=== PATIENT | female | born 1950 | race Caucasian/White ===

== ENCOUNTER 2018-05-10 13:08 | Outpatient (CLI) | payer MEDICARE, MEDICAID ==
--- NOTE | 2018-05-10 15:59 | RAD ---
RADIOGRAPH CHEST 2 VIEWS: Date: 05-10-18 Time: 1:22 P.M. HISTORY: 67-year-old female with dyspnea. COMPARISON: None available. 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 Multiple old right rib fracture deformities. Di ffuse osteopenia. No pleural effusion or consolidation. Prominent interstitial markings diffusely. Ca rdiomegaly. Atherosclerotic calcifications, tortuosity, and ectasia and of the thoracic aorta. No pne umothorax identified. No moderate sized or large pneumothorax identified, although the sensitivity is decreased because of the severe kyphosis. IMPRESSION: 1. 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 2. Multiple old right rib fracture deformities. 3. Prominent interstitial markings. 4. No pulmonary edema or consolidation. ALFREDO POS: JUAN
== END 2018-05-10 13:09 | disposition home or self-care (01) ==
LOC: RAD 13:08
PROVIDERS: ATTEND Internal Medicine Critical Care Medicine
DX: R06.00 Dyspnea, unspecified (principal); M40.204 Unspecified kyphosis, thoracic region; R91.8 Other nonspecific abnormal finding of lung field; M95.4 Acquired deformity of chest and rib
CPT/HCPCS: 71046

== ENCOUNTER 2019-11-21 19:54 | Inpatient (IN) | payer MEDICARE, OTHER ==
[~2019-11-21 19:54] MED LIST: Iopamidol-370 76% 500 ML 1 ML ONE
[2019-11-21 20:39] LABS: Hemoglobin 13.2 g/dL (12.0-16.0); Mean Corpuscular HGB CONC 31.7 g/dL (32.0-36.0); Mean Corpuscular Hemoglobin 33.4 pg (27.0-31.0); Mean Platelet Volume 8.7 fL (7.4-10.4); Platelet Count 249 thou/uL (130-400); RBC Distribution Width 10.8 % (11.5-14.5); Red Blood Cell (RBC) Count 3.95 mill/uL (4.20-5.40); White Blood Cell (WBC) Count 14.3 thou/uL (4.8-10.8)
[2019-11-21 20:40] LABS: #Basophils 0.1 thou/uL (0.0-0.2); #Eosinphils 0.4 thou/uL (0.0-0.7); #Lymphocytes 3.1 thou/uL (1.20-3.40); #Monocytes 1.3 thou/uL (0.11-0.59); #Neutrophils 9.4 thou/uL (1.40-6.50); %Basophils 0.8 % (0.0-1.0); %Lymphocytes 21.4 % (21.0-51.0); %Monocytes 9.3 % (0.0-10.0); %Neutrophils 65.5 % (42.0-75.0)
[2019-11-21 20:54] LABS: ALT (SGPT) 15 U/L (8-55); AST (SGOT) 21 U/L (5-34); Albumin 4.2 g/dL (3.4-4.8); Alkaline Phosphatase 92 U/L (40-110); Anion Gap 17 mmol/L (10-20); BUN (Urea Nitrogen) 26 mg/dL (9.8-20.1); Bilirubin, Total 0.2 mg/dL (0.2-1.2); CK (CPK) 122 U/L (29-168); Calc. Creatinine Clearance 0 mL/min (70-130); Calcium 9.4 mg/dL (7.8-10.44); Carbon Dioxide 32 mmol/L (23-31); Chloride 94 mmol/L (98-107); Estimated GFR-MDRD 74; Globulin 2.7 g/dL (2.4-3.5); Glucose 105 mg/dL (80-115); Potassium 3.9 mmol/L (3.5-5.1); Protein, Total 6.9 g/dL (6.0-8.3); Sodium 139 mmol/L (136-145)
[2019-11-21] MEDS ORDERED: Clindamycin/D5W 900 mg/50 ml Premix Bag ONE (21:08)
[2019-11-21] MEDS ORDERED: Fentanyl 100 MCG/2 ML VIAL ONE (21:08)
[2019-11-21] MEDS ORDERED: Vancomycin 1 GM/200 ML BAG ONE (21:08)
--- NOTE | 2019-11-21 21:17 | RAD ---
RIGHT ANKLE 3 VIEWS: HISTORY: Injury, right ankle pain FINDINGS: Soft tissue swelling is present. The ankle mortise is maintained. No acute fracture or dislocation is identified. A tiny plantar calcaneal spur is present
--- NOTE | 2019-11-21 22:03 | RAD ---
PORTABLE CHEST ONE VIEW: 11/21/19 at 8:11 p.m. HISTORY: Chest pain. COMPARISON: 05/10/18. The heart is enlarged. The aorta is tortuous. Chronic changes are again seen in the lung etienne bilat erally. No lobar consolidation, pneumothoraces, yasmine pulmonary edema or pleural effusions are identi fied. Bilateral rib deformities are redemonstrated. IMPRESSION: No acute process. POS: RIDGE
[2019-11-21] MEDS ORDERED: methylPREDNISolone Sod Succ/PF 125 MG/2 ML VIAL ONE (22:33)
[2019-11-21] MEDS ORDERED: diphenhydrAMINE 50 MG/ML VIAL ONE (22:33)
[2019-11-21] MEDS ORDERED: Famotidine/PF 20 mg/2ml Vial ONE (22:33)
--- NOTE | 2019-11-21 23:32 | CT ---
CT PULMONARY ANGIOGRAM WITH IV CONTRAST AND 3-D POSTPROCESSING: HISTORY:Chest pain and shortness of breath FINDINGS: There is good contrast opacification of the pulmonary arterial vasculature without filling defects to suggest pulmonary embolism. There are vascular calcifications without evidence of aneurysmal dilatation of the thoracic aorta. No pleural or pericardial effusions are seen. No pneumothoraces, focal areas of consolidation or lung nodules are noted. There is subsegmental atel ectatic change at the lung bases There are degenerative changes in the spine. IMPRESSION: No CT evidence of pulmonary embolism.
--- NOTE | 2019-11-22 | ULT ---
EXAM: Right lower extremity venous Doppler US HISTORY: Right lower extremity edema, redness and pain FINDINGS: Grayscale, color-flow, Doppler evaluation, spectral analysis of the right lower extremity venous stru ctures is performed with 2-D imaging. The right common femoral, superficial femoral, popliteal, posterior tibial, proximal greater saphenous and profunda femoral veins are imaged. There is normal luminal compressibility, flow, and augmentation the visualized deep venous structures of the right lower extremity. IMPRESSION: No evidence of a deep vein thrombosis in the right lower extremity.
[2019-11-22 01:13] LABS: Troponin I Less than 0.010 ng/mL (< 0.028)
[2019-11-22 01:56] VITALS: BMI 39.9
[2019-11-22] MEDS ORDERED: Acetaminophen 650 MG Suppository PR PRN (03:09)
[2019-11-22] MEDS ORDERED: Lorazepam 0.5 MG TAB PO PRN (03:12)
[2019-11-22] MEDS ORDERED: Alendronate Sodium 70 mg Tablet PO SCH (03:15)
[2019-11-22] MEDS: Nitroglycerin 0.4 MG TAB (25 Tab Bottle) PO PRN ×3 (03:38→23:03)
[2019-11-22] MEDS ORDERED: Morphine 2 MG/ML SYRINGE SLOW IVP SCH (03:45)
[2019-11-22] MEDS: Baclofen 10 MG TAB PO PRN ×2 (04:01→08:53)
[2019-11-22] MEDS: Acetaminophen 325 MG TAB PO PRN ×2 (04:02→08:38)
[2019-11-22 04:24] LABS: Bacteria/HPF None Seen HPF (None Seen); Bilirubin Negative (Negative); Blood, Urine Negative (Negative); Clarity Clear (Clear); Glucose, Urine (Dipstick) Normal (Negative); Leukocyte 250 Leu/uL (Negative); Nitrite Negative (Negative); Protein, Urine (Dipstick) Negative (Neg-Trace); RBC/HPF 0-3 HPF (0-3); Squamous Epithelial None Seen HPF (0-3); Urobilinogen Normal mg/dL (Less than 2)
[2019-11-22 04:26] LABS: Urine Culture Reflex Yes Yes
--- NOTE | 2019-11-22 05:07 | HP ---
TIME OF ASSESSMENT: 0200 hours. PRIMARY CARE PHYSICIAN: Dr. Jose Baeza. CHIEF COMPLAINT: Left-sided chest pain. HISTORY OF PRESENT ILLNESS: Ms. Brown is a very pleasant 69-year-old woman, who presents with complaints of left-sided chest pain, which she describes as a heaviness. She states it feels as if a "rock is pushing on my chest." The patient states it is nonradiating and at its worst was 8/10 in severity today. The patient states the pain eased with fentanyl given in the emergency department, she received a dose of 100 mcg. At present, the pain is 6/10 and has been gradually building back up. She reports having an appointment with Dr. Romero on the with plans to undergo a stress test. She has not had an echo or a stress test since 2016 when she was seeing a agricultural science professor in [place]. The patient reports having left-sided upper back pain last week and states that she felt as though she pulled a muscle. She describes a tearing pain. On Wednesday night, she developed pain radiating from the left shoulder blade region wrapping around the left lateral chest wall toward the front of her chest. She states the pain today; however, is different. She continues to have discomfort in the left shoulder blade region, worse with certain movements. Denies any injuries, falls or heavy lifting. The patient reports shortness of breath at baseline and is on oxygen at home. She states she has underlying COPD and CHF and uses 3-4 L by nasal cannula at home, but this has not changed from baseline. Denies having any hemoptysis. She does have a chronic cough. She reports having issues with chronic constipation, but denies any abdominal pain or cramping. No melena or bright red blood per rectum. Denies any urinary symptoms. Has been afebrile. All other review of systems are negative. EMERGENCY DEPARTMENT COURSE: The patient had one spray of nitroglycerin en route to the hospital. She had an EKG done that showed normal sinus rhythm with left atrial enlargement type changes. Heart rate 90. No ST changes or T-wave abnormalities. A chest x-ray was done showing no acute process. LABORATORY STUDIES: Notable for white count of 14.3, hemoglobin 13.2, hematocrit 41.7, platelets 249, neutrophils 65.5%. CK 122, BUN 26, creatinine 0.78, GFR is 74. LFTs unremarkable. BNP 11.3. Lipase normal. Lactic acid 0.6. D-dimer was slightly elevated at 0.48. She apparently had some mild discomfort in the right ankle, therefore underwent an x-ray that showed soft tissue swelling, but no acute fracture. A tiny plantar calcaneal spur present. She had a chest x-ray done, which showed no acute changes. CT angiogram was done due to the elevated D-dimer, which demonstrated no CT evidence of PE. She underwent a venous Doppler of the right lower extremity showing no evidence of DVT. In the ED, she received 1 L of normal saline. She was started on IV antibiotics with vancomycin and clindamycin due to leukocytosis, felt to be associated with possible right lower extremity cellulitis. She was premedicated for the CT angiogram with Solu-Medrol, Benadryl and Pepcid given the history of allergic reaction. The patient is being admitted for ACS rule out and treatment of right lower extremity cellulitis. ALLERGIES: HALDOL, IODINE CONTRAST, PENICILLIN. HOME MEDICATIONS: 1. Aspirin. 2. Hydrocodone. 3. Fosamax. 4. Amlodipine. 5. Abilify. 6. Ascorbic acid. 7. Baclofen. 8. Rocephin. 9. DuoNeb. 10. Trazadone. 11. Lamotrigine. 12. Lisinopril. 13. Pravastatin. 14. Multivitamin. 15. Oxybutynin. PAST MEDICAL HISTORY: 1. COPD. 2. Osteoporosis. 3. Heart failure. 4. Hypertension. 5. Morbid obesity. 6. Anxiety. PAST SURGICAL HISTORY: 1. Hysterectomy. 2. Tonsillectomy. SOCIAL HISTORY: The patient denies any current tobacco use. Denies any alcohol consumption or illicit drug use. PHYSICAL EXAMINATION: GENERAL: The patient appears well developed, morbidly obese, in no acute distress. She is resting comfortably in bed. VITAL SIGNS: Temperature 98.3, pulse 74, respirations 20, O2 saturation 96% on 3 L by nasal cannula, blood pressure 157/72. HEENT: Normocephalic and atraumatic. Pupils are equal, round, reactive to light. Sclerae icterus. Oropharynx is clear. NECK: Supple. LUNGS: Clear to auscultation bilaterally without any wheezes, rales, or rhonchi. CARDIAC: Regular rate and rhythm. Chest wall without any reproducible tenderness on the anterior chest or the lateral chest. ABDOMEN: Obese, soft, nontender, nondistended. Normoactive bowel sounds present. No guarding or rigidity. No renal angle tenderness. EXTREMITIES: No lower extremity edema present. No notable areas of concern for infection on the right lower extremity. She does have a bulging vein of the left ankle. SKIN: Warm and dry. NEUROLOGIC: Alert and oriented x3. No neuro deficits. INVESTIGATIONS: As mentioned above in HPI. IMPRESSION AND PLAN: Ms. Brown is a pleasant 69-year-old woman, who is being admitted for management of the following. 1. Acute coronary syndrome rule out. The patient is requesting to be seen by Dr. Romero and states she was due for a stress test next week on November 29, 2019. She underwent Coronavirus disease testing in the emergency department due to leukocytosis. Therefore, we will hold off on ordering stress test until results are back and we will consult Dr. Romero as requested by the patient. Further recommendations as per Cardiology review. 2. We will continue to trend troponins. We will continue daily aspirin and statin. 3. Leukocytosis. The patient reported to have right lower extremity cellulitis; however, no evidence of that on exam. I have ordered a urinalysis and urine culture. Also, Coronavirus disease testing pending as mentioned above. No obvious signs or symptoms of infection. The patient remains afebrile at present. We will hold off any further antibiotics for the time being. The patient to decide if this should be continued. 4. History of congestive heart failure. The patient on Lasix 80 mg p.o. b.i.d. at home. We will resume Lasix. She is receiving gentle hydration given the contrast given for the CT angiogram. 5. Chronic obstructive pulmonary disease. The patient on home O2 at baseline without any changes in her breathing. She feels comfortable at present. She had a CT angiogram that showed no evidence of pulmonary embolism. Continue to monitor O2 saturations. 6. She is on hypertension. Monitor blood pressure. Home medications were reconciled. 7. Gastrointestinal prophylaxis with famotidine. 8. Code status: Full. The patient's case discussed with attending, who agrees with plan of care as described above. Job ID: [id number] [facility]
[2019-11-22 05:27] LABS: #Basophils 0.1 thou/uL (0.0-0.2); #Eosinphils 0.1 thou/uL (0.0-0.7); #Lymphocytes 1.1 thou/uL (1.20-3.40); #Monocytes 0.1 thou/uL (0.11-0.59); #Neutrophils 12.3 thou/uL (1.40-6.50); %Basophils 0.4 % (0.0-1.0); %Eosinophils 0.4 % (0.0-10.0); %Lymphocytes 8.1 % (21.0-51.0); %Monocytes 0.8 % (0.0-10.0); %Neutrophils 90.3 % (42.0-75.0); Mean Corpuscular HGB CONC 32.5 g/dL (32.0-36.0); Mean Platelet Volume 9.2 fL (7.4-10.4); Platelet Count 235 thou/uL (130-400); RBC Distribution Width 10.8 % (11.5-14.5); Red Blood Cell (RBC) Count 3.83 mill/uL (4.20-5.40); White Blood Cell (WBC) Count 13.6 thou/uL (4.8-10.8)
[2019-11-22 05:52] LABS: Anion Gap 11 mmol/L (10-20); BUN (Urea Nitrogen) 19 mg/dL (9.8-20.1); Calc. Creatinine Clearance 122 mL/min (70-130); Calcium 9.3 mg/dL (7.8-10.44); Carbon Dioxide 34 mmol/L (23-31); Cardiac Risk 2.6 (Less than 4.5); Chloride 97 mmol/L (98-107); Cholesterol 197 mg/dl (< 200 Desired); Estimated GFR-MDRD 81; Glucose 142 mg/dL (80-115); HDL Cholesterol 76 mg/dL (>60 Neg Risk); LDL Cholesterol, Calculated 111 mg/dL; Magnesium 1.9 mg/dL (1.6-2.6); Potassium 4.3 mmol/L (3.5-5.1); Sodium 138 mmol/L (136-145); Triglycerides 50 mg/dL (Less than 150)
[2019-11-22] MEDS: Aripiprazole 15 MG TAB PO SCH (08:35)
[2019-11-22] MEDS: Ascorbic Acid 500 mg Chewable Tablet PO SCH (08:35)
[2019-11-22] MEDS: Oxybutynin 5 MG TAB PO SCH ×2 (08:35→21:49)
[2019-11-22] MEDS: Lisinopril 20 MG TAB PO SCH (08:36)
[2019-11-22] MEDS: Furosemide 40 MG TAB PO SCH ×2 (08:36→21:48)
[2019-11-22] MEDS: Multivitamin W/ Minerals 1 TAB PO SCH (08:36)
[2019-11-22] MEDS ORDERED: Modafinil 100 MG TAB PO SCH (09:00)
[2019-11-22] MEDS ORDERED: Aspirin 325 mg Enteric Coated Tablet PO SCH (09:00)
[2019-11-22] MEDS ORDERED: Famotidine/PF 20 mg/2ml Vial SLOW IVP SCH (09:00)
[2019-11-22] MEDS: HYDROcodone/Acetaminophen 10/325 mg Tablet PO PRN ×3 (09:52→21:46)
[2019-11-22] MEDS: Aspirin 81 mg Enteric Coated Tablet PO SCH (09:52)
[2019-11-22] MEDS: Cyanocobalamin (Vitamin B-12) 1,000 MCG TAB PO SCH (09:52)
[2019-11-22] MEDS: Folic Acid 1 MG TAB PO SCH (09:52)
[2019-11-22] MEDS ORDERED: Ketorolac Tromethamine 30 MG/ML VIAL IVP SCH (11:45)
[2019-11-22] MEDS ORDERED: predniSONE 20 MG TAB PO SCH (12:15)
[2019-11-22] MEDS ORDERED: diphenhydrAMINE 25 MG CAP PO SCH (12:15)
[2019-11-22] MEDS ORDERED: Famotidine 20 MG TAB PO SCH (12:30)
--- NOTE | 2019-11-22 13:44 | CON ---
DATE OF CONSULTATION: HISTORY OF PRESENT ILLNESS: The patient is a 69-year-old woman, who presents for evaluation of chest discomfort. The patient has a previous history of angina. The patient has previously undergone cardiac evaluation several years ago. She was most recently seen for recurrent chest discomfort. She describes that as a severe discomfort in the middle of her chest. The dose of her medications was increased and she has had much less angina on higher dose of Imdur. The patient was in her usual state of health, when two weeks ago she pulled a muscle in her left shoulder which radiated into her chest. This discomfort was worse with movement. Yesterday morning the discomfort became very intense in her left shoulder and into her chest. This was persistent. She eventually came to the emergency room for evaluation. The patient received fentanyl with marked improvement in her pain which is still present. PAST MEDICAL HISTORY: 1. Angina. 2. COPD. 3. Hypertension. 4. Hepatitis. 5. Anxiety. 6. Asthma. 7. Morbid obesity. PAST SURGICAL HISTORY: Hysterectomy,and tonsillectomy. MEDICATIONS: See nursing list. ALLERGIES: HALDOL, IODINE, PENICILLIN. PHYSICAL EXAMINATION: GENERAL: This is a morbidly obese woman, in mild distress. VITAL SIGNS: Blood pressure 115/58. NECK: Showed no jugular venous distention. LUNGS: Have coarse breath sounds bilateral. HEART: Regular rate and rhythm. Normal S1 and S2. ABDOMEN: Distended. EXTREMITIES: Showed mild edema. LABORATORY DATA: Sodium 138, potassium 4.3, chloride 97, bicarbonate 34, BUN 19 , creatinine 0.72, glucose is 142. Troponin is 0.01. Cholesterol is 111. White blood cell count 13.6, hemoglobin 13.0, hematocrit 40.0, platelets are 235. EKG sinus rhythm unremarkable ECG. IMPRESSION: 1. Chest pain, atypical, probably musculoskeletal. 2. History of angina. 3. Hypertension. 4. Asthma. 5. Chronic obstructive pulmonary disease. 6. Morbid obesity. This patient presents with recurrent chest discomfort which is atypical. The patient was treated with Toradol. The patient is doing much better in terms of her angina with higher dose of Imdur. I have discussed the option of undergoing an invasive evaluation. Further recommendations will follow. We will treat the patient with Toradol. Job ID: [id number] [facility]
[2019-11-22] MEDS: Famotidine 20 MG TAB PO SCH ×2 (18:07→22:56)
[2019-11-22] MEDS: diphenhydrAMINE 25 MG CAP PO SCH ×2 (18:07→22:57)
[2019-11-22] MEDS: Ibuprofen 600 MG TAB PO SCH (18:07)
[2019-11-22] MEDS: predniSONE 20 MG TAB PO SCH ×2 (18:08→22:57)
[2019-11-22] MEDS ORDERED: Amlodipine 5 MG TAB PO SCH (21:00)
[2019-11-22] MEDS: Atorvastatin Calcium 10 MG TAB PO SCH (21:47)
[2019-11-22] MEDS: lamoTRIgine 100 MG TAB PO SCH (21:47)
[2019-11-22] MEDS: traZODone HCl 50 MG TAB PO SCH (21:48)
[2019-11-22] MEDS: Senokot S 8.6-50 MG TAB PO SCH (21:48)
[2019-11-23] MEDS: Baclofen 10 MG TAB PO PRN (03:04)
[2019-11-23] MEDS: HYDROcodone/Acetaminophen 10/325 mg Tablet PO PRN ×3 (03:04→20:46)
[2019-11-23 05:47] LABS: #Lymphocytes 1.5 thou/uL (1.20-3.40); #Monocytes 0.8 thou/uL (0.11-0.59); #Neutrophils 11.6 thou/uL (1.40-6.50); %Basophils 0.1 % (0.0-1.0); %Eosinophils 0.3 % (0.0-10.0); %Lymphocytes 10.9 % (21.0-51.0); %Monocytes 5.7 % (0.0-10.0); Hemoglobin 12.8 g/dL (12.0-16.0); Mean Corpuscular HGB CONC 31.5 g/dL (32.0-36.0); Mean Corpuscular Hemoglobin 32.9 pg (27.0-31.0); Mean Platelet Volume 8.8 fL (7.4-10.4); Platelet Count 258 thou/uL (130-400); RBC Distribution Width 10.8 % (11.5-14.5); Red Blood Cell (RBC) Count 3.89 mill/uL (4.20-5.40)
[2019-11-23 06:07] LABS: Anion Gap 11 mmol/L (10-20); BUN (Urea Nitrogen) 25 mg/dL (9.8-20.1); Calc. Creatinine Clearance 110 mL/min (70-130); Carbon Dioxide 35 mmol/L (23-31); Chloride 96 mmol/L (98-107); Estimated GFR-MDRD 72; Glucose 129 mg/dL (80-115); Potassium 4.2 mmol/L (3.5-5.1); Sodium 138 mmol/L (136-145)
[2019-11-23] MEDS: Lisinopril 20 MG TAB PO SCH (06:19)
[2019-11-23] MEDS: Aspirin 81 mg Enteric Coated Tablet PO SCH (06:19)
[2019-11-23] MEDS: Ibuprofen 600 MG TAB PO SCH ×3 (06:19→16:32)
[2019-11-23] MEDS: Famotidine 20 MG TAB PO SCH ×2 (06:20→20:44)
[2019-11-23] MEDS: predniSONE 20 MG TAB PO SCH (06:20)
[2019-11-23] MEDS: diphenhydrAMINE 25 MG CAP PO SCH (06:20)
[2019-11-23] MEDS ORDERED: Heparin 10,000 UNITS/1 ML VIAL ONE (07:09)
[2019-11-23] MEDS ORDERED: Nitroglycerin 100MG/250ML BOT 250 ML ONE (07:09)
[2019-11-23] MEDS ORDERED: Verapamil 5 MG/2 ML VIAL ONE (07:09)
[2019-11-23] MEDS ORDERED: Sodium Chloride 0.9% (PF) 10 ML VIAL FS PRN (08:50)
[2019-11-23] MEDS ORDERED: Pantoprazole 40 MG VIAL IVP SCH (09:00)
[2019-11-23] MEDS ORDERED: Morphine 4 MG/ML VIAL SLOW IVP SCH (09:00)
[2019-11-23] MEDS ORDERED: Iopamidol 370 76% 100 ML VIAL ONE (09:17)
[2019-11-23] MEDS: Folic Acid 1 MG TAB PO SCH (09:58)
[2019-11-23] MEDS: Ascorbic Acid 500 mg Chewable Tablet PO SCH (09:58)
[2019-11-23] MEDS: Cyanocobalamin (Vitamin B-12) 1,000 MCG TAB PO SCH (09:58)
[2019-11-23] MEDS: Senokot S 8.6-50 MG TAB PO SCH ×2 (09:59→20:45)
[2019-11-23] MEDS: Multivitamin W/ Minerals 1 TAB PO SCH (09:59)
[2019-11-23] MEDS ORDERED: Midazolam HCl 2 mg/2 ml Vial ONE (11:38)
[2019-11-23] MEDS ORDERED: Fentanyl 100 MCG/2 ML VIAL ONE (11:39)
[2019-11-23] MEDS ORDERED: Sodium Chloride 0.9% 200 ML IV PRN (12:09)
[2019-11-23] MEDS ORDERED: Acetaminophen/Codeine 30-300mg Tablet PO PRN (12:09)
[2019-11-23] MEDS ORDERED: Sodium Chloride 0.9% 500 ML IV SCH (12:15)
[2019-11-23] MEDS: Furosemide 40 MG TAB PO SCH ×2 (13:22→13:44)
[2019-11-23] MEDS: Oxybutynin 5 MG TAB PO SCH ×2 (13:27→20:45)
[2019-11-23] MEDS: Modafinil 100 MG TAB PO SCH ×2 (13:28→13:45)
[2019-11-23] MEDS: Aripiprazole 15 MG TAB PO SCH (13:28)
[2019-11-23] MEDS ORDERED: cefTRIAXone\\ROCEPHIN 1 GM in Sodium Chloride 0.9% 100 ML IVPB SCH (16:00)
--- NOTE | 2019-11-23 17:23 | PDOC.HOSPP ---
- Subjective Encounter Date: 11/23/19 Encounter Time: 17:22 Subjective: Pt seen for followup re: unstable angina. c/o on and off chest pain. - Objective Vital Signs & Weight: Vital Signs (12 hours) Temp Pulse Resp BP BP Pulse Ox 11/23/19 16:29 97.9 F 72 16 174/88 H 97 11/23/19 08:00 97.5 F L 78 16 147/92 H 91 L 11/23/19 06:19 140/60 Weight Weight 225 lb 1.6 oz I&O: 11/22/19 11/23/19 11/24/19 06:59 06:59 06:59 Intake Total 1070 Output Total 250 1300 200 Balance -250 -230 -200 Result Diagrams: 11/23/19 05:35 11/23/19 05:35 Additional Labs: Labs and MARs reviewed by me EKG Reviewed by me: Yes (Tele: NSR) Hospitalist ROS - Review of Systems Respiratory: denies: cough, shortness of breath, SOB with excertion, pleuritic pain, wheezing Cardiovascular: reports: chest pain. denies: palpitations, orthopnea, paroxysmal noc. dyspnea, edema, light headedness - Medication Medications: Active Medications Generic Name Dose Route Start Last Admin Trade Name Freq PRN Reason Stop Dose Admin Acetaminophen 650 mg 11/22/19 03:09 11/22/19 08:38 Tylenol PO 650 mg Q4H PRN Administration Headache/Fever/Mild Pain (1-3) Hydrocodone Bitart/Acetaminophen 1 tab 11/22/19 09:33 11/23/19 13:27 [place] 10/325 PO 1 tab Q6HR PRN Administration Moderate Pain (4-6) Aripiprazole 30 mg 11/22/19 09:00 11/23/19 13:28 Abilify PO 30 mg DAILY DWIGHT Administration Ascorbic Acid 500 mg 11/22/19 09:00 11/23/19 09:58 Vitamin C PO Not Given DAILY DWIGHT Aspirin 81 mg 11/22/19 09:00 11/23/19 06:19 Ecotrin PO 81 mg DAILY DWIGHT Administration Atorvastatin Calcium 10 mg 11/22/19 21:00 11/22/19 21:47 Lipitor PO 10 mg HS DWIGHT Administration Baclofen 10 mg 11/22/19 03:12 11/23/19 03:04 Lioresal PO 10 mg TID PRN Administration MUSCLE PAIN Cyanocobalamin 1,000 mcg 11/22/19 09:00 11/23/19 09:58 Vitamin B-12 PO Not Given DAILY [facility] Folic Acid 1 mg 11/22/19 09:00 11/23/19 09:58 Folvite PO Not Given DAILY [facility] Furosemide 80 mg 11/23/19 14:00 11/23/19 13:44 Lasix PO 80 mg 0600,1400 [facility] Administration Ceftriaxone Sodium 1 gm/ 100 mls @ 200 mls/hr 11/23/19 16:00 11/23/19 16:32 Sodium Chloride IVPB 100 mls 1600 [facility] Administration Ibuprofen 600 mg 11/22/19 17:00 11/23/19 16:32 Motrin PO 600 mg TID-WM [facility] Administration Iron/Minerals/Multivitamins 1 tab 11/22/19 09:00 11/23/19 09:59 Theragran M PO Not Given DAILY [facility] Isosorbide Mononitrate 60 mg 11/23/19 09:00 11/23/19 06:19 Imdur PO 60 mg DAILY [facility] Administration Lamotrigine 100 mg 11/22/19 21:00 11/22/19 21:47 Lamictal PO 100 mg HS [facility] Administration Lisinopril 40 mg 11/22/19 09:00 11/23/19 06:19 Zestril PO 40 mg DAILY [facility] Administration Modafinil 100 mg 11/23/19 09:00 11/23/19 13:45 Provigil PO 100 mg 0900,1200 [facility] Administration Nitroglycerin 0.4 mg 11/22/19 03:11 11/22/19 23:03 Nitrostat PO 1 tab Q5MIN PRN Administration Chest Pain Oxybutynin Chloride 5 mg 11/22/19 09:00 11/23/19 13:27 Ditropan PO 5 mg BID [facility] Administration Ranolazine 500 mg 11/22/19 21:00 11/23/19 06:19 Ranexa PO 500 mg BID [facility] Administration Senna/Docusate Sodium 2 tab 11/22/19 21:00 11/23/19 09:59 Senokot S PO Not Given BID [facility] Trazodone HCl 100 mg 11/22/19 21:00 11/22/19 21:48 Desyrel PO 100 mg HS DWIGHT Administration - Exam General - other findings: Obese Eye: anicteric sclera ENT: moist mucosa Neck: supple, no thyromegaly Heart: RRR, no rubs Respiratory: CTAB Gastrointestinal: soft, non-tender Skin: no rashes Psychiatric: normal affect, normal behavior Hosp A/P (1) Unstable angina Status: Acute (2) UTI (urinary tract infection) Status: Acute (3) COPD (chronic obstructive pulmonary disease) Status: Chronic (4) HTN (hypertension) Code(s): I10 - ESSENTIAL (PRIMARY) HYPERTENSION Status: Chronic (5) Chronic diastolic CHF (congestive heart failure), NYHA class 2 Code(s): I50.32 - CHRONIC DIASTOLIC (CONGESTIVE) HEART FAILURE Status: Chronic - Plan Medical management for unstable angina. CHF and COPD are stable. Amlodipine dose increased to 10 mg daily. Monitor vital signs and titrate antihypertensives as needed.
[2019-11-23] MEDS: Nitroglycerin 0.4 MG TAB (25 Tab Bottle) PO PRN (20:40)
[2019-11-23] MEDS: Atorvastatin Calcium 10 MG TAB PO SCH (20:44)
[2019-11-23] MEDS: lamoTRIgine 100 MG TAB PO SCH (20:45)
[2019-11-23] MEDS: traZODone HCl 50 MG TAB PO SCH (20:46)
[2019-11-23] MEDS ORDERED: Clopidogrel Bisulfate 300 MG TAB PO SCH (21:00)
[2019-11-24] MEDS: Acetaminophen 325 MG TAB PO PRN (00:06)
[2019-11-24] MEDS: HYDROcodone/Acetaminophen 10/325 mg Tablet PO PRN ×2 (02:51→09:13)
[2019-11-24] MEDS: Furosemide 40 MG TAB PO SCH (05:28)
[2019-11-24] MEDS: Lisinopril 20 MG TAB PO SCH (08:32)
[2019-11-24] MEDS: Aspirin 81 mg Enteric Coated Tablet PO SCH (08:32)
[2019-11-24] MEDS: Ibuprofen 600 MG TAB PO SCH ×2 (08:32→10:53)
[2019-11-24] MEDS: Aripiprazole 15 MG TAB PO SCH (08:32)
[2019-11-24] MEDS: Cyanocobalamin (Vitamin B-12) 1,000 MCG TAB PO SCH (08:32)
[2019-11-24] MEDS: Ascorbic Acid 500 mg Chewable Tablet PO SCH (08:32)
[2019-11-24] MEDS: Famotidine 20 MG TAB PO SCH (08:32)
[2019-11-24] MEDS: Folic Acid 1 MG TAB PO SCH (08:32)
[2019-11-24] MEDS: Oxybutynin 5 MG TAB PO SCH (08:33)
[2019-11-24] MEDS: Multivitamin W/ Minerals 1 TAB PO SCH (08:33)
[2019-11-24] MEDS: Modafinil 100 MG TAB PO SCH ×2 (08:33→10:53)
[2019-11-24] MEDS: Senokot S 8.6-50 MG TAB PO SCH (08:33)
[2019-11-24] MEDS ORDERED: Cefdinir 300 MG CAP PO SCH ×2 (10:30→21:00)
[2019-11-24 11:46] VITALS: BP 138/67; TEMP 97.8
--- NOTE | 2019-11-24 16:26 | DIS ---
DATE OF ADMISSION: 11/22/2019 DATE OF DISCHARGE: 11/24/2019 PRIMARY CARE PROVIDER: Dr. Jose Baeza. DISCHARGE DIAGNOSES: 1. Unstable angina. 2. Proteus urinary tract infection. 3. Chronic diastolic congestive heart failure, [place] Heart Association class II. CONDITION: Condition of the patient on the day of discharge: Stable. I assessed Ms. Brown on the day of discharge. She denies any chest pain or shortness of breath. Vital signs are stable. S1 and S2 are heard, regular. Lungs are clear to auscultation bilaterally. DISCHARGE MEDICATIONS: 1. Amlodipine dose has been increased to 10 mg at bedtime. 2. She has been started on Omnicef 300 mg 2 times a day for 1 week. 3. Plavix 75 mg daily. 4. Imdur ER dose increased to 120 mg daily. 5. Ranexa started at 500 mg 2 times a day. 6. Nitroglycerin p.r.n. prescribed. Otherwise, no change was made to her pre-admission home medications, which include; 1. Jeanerette one tablet every 6 hours. 2. Fosamax 70 mg every week. 3. Abilify 30 mg daily. 4. Vitamin C 500 mg daily. 5. Aspirin 81 mg daily. 6. Lasix 80 mg 2 times a day. 7. Lamotrigine 100 mg at bedtime. 8. Lisinopril 40 mg daily. 9. Modafinil 100 mg 2 times a day. 10. Multivitamins one tablet daily. 11. Oxybutynin 5 mg 2 times a day. 12. Pravastatin 40 mg at bedtime. 13. Trazodone 100 mg at bedtime. 14. Baclofen p.r.n. 15. DuoNeb p.r.n. 16. Lorazepam p.r.n. CONSULTATIONS DURING THIS HOSPITALIZATION: Cardiology, Dr. Romero. HOSPITAL COURSE: Ms. Brown is a pleasant 69-year-old lady, who was admitted to [facility] on November 22, 2019, for chest pain secondary to unstable angina. She was seen by Cardiology Service and underwent cardiac catheterization. She was found to have severe ostial disease, moderate D1 disease, normal LV function. She was recommended medical therapy. She was also found to have urinary tract infection. Urine culture grew Proteus mirabilis that was resistant to ciprofloxacin, levofloxacin, and nitrofurantoin, but was sensitive to amikacin, ampicillin, cefepime, cefoxitin, ceftazidime, ceftriaxone, gentamicin, meropenem, Zosyn, tobramycin, and Bactrim. TSH was decreased at 0.0820, but free T4 was normal at 1.10. She is advised to have her thyroid profile checked in about 6 weeks' time. At the time of this dictation, preliminary blood cultures are negative. She is advised to follow up with primary care provider for final blood culture result. POST-ACUTE CARE FOLLOWUP: With primary care provider in 3 days and with Cardiology, Dr. Romero in 10 days. DIET: Heart-healthy diet and low-sodium diet. ACTIVITY: As tolerated. Fasting lipid profile during this hospitalization showed triglycerides 50, cholesterol 197, LDL cholesterol 111, and HDL cholesterol 76. Creatinine was 0.80 on November 23, 2019. Hemoglobin was 12.8 on November 23, 2019. Many thanks for allowing me to participate in your patient's care. Please feel free to contact me with any questions or concerns. DISCHARGE DESTINATION: Home. TIME SPENT: Total amount of time spent in coordinating this discharge: 32 minutes. Job ID: [id number]
[2019-11-24] MEDS ORDERED: Amlodipine 10 MG TAB PO SCH (21:00)
[2019-11-24] MEDS ORDERED: Atorvastatin Calcium 20 MG TAB PO SCH (21:00)
== END 2019-11-24 13:40 | disposition home or self-care (01) | DRG 287 ==
LOC: ERS 19:54 → OBSVTOIN 11-22 00:23 → 2SW 11-22 00:23 → 2NO 11-23 15:55
PROVIDERS: ADMIT Internal Medicine; ATTEND Internal Medicine
PROC: 4A023N7 Measurement of Cardiac Sampling and Pressure, Left Heart, Percutaneous Approach (ICD-10-PCS; principal; 2019-11-23)
PROC: B2111ZZ Fluoroscopy of Multiple Coronary Arteries using Low Osmolar Contrast (ICD-10-PCS; 2019-11-23)
DX: I25.110 Atherosclerotic heart disease of native coronary artery with unstable angina pectoris (principal); N39.0 Urinary tract infection, site not specified; I50.32 Chronic diastolic (congestive) heart failure; L03.115 Cellulitis of right lower limb; B96.4 Proteus (mirabilis) (morganii) as the cause of diseases classified elsewhere; M81.0 Age-related osteoporosis without current pathological fracture; I11.0 Hypertensive heart disease with heart failure; J44.9 Chronic obstructive pulmonary disease, unspecified; E11.9 Type 2 diabetes mellitus without complications; E66.01 Morbid (severe) obesity due to excess calories; F41.9 Anxiety disorder, unspecified; K75.9 Inflammatory liver disease, unspecified; Z90.710 Acquired absence of both cervix and uterus; Z90.49 Acquired absence of other specified parts of digestive tract; Z88.0 Allergy status to penicillin; Z88.8 Allergy status to other drugs, medicaments and biological substances; Z91.041 Radiographic dye allergy status; Z79.4 Long term (current) use of insulin; Z68.39 Body mass index [BMI] 39.0-39.9, adult
CPT/HCPCS: 36415; 71045; 71275; 80048; 80053; 80061; 81001; 82550; 83605; 83690; 83735; 83880; 84439; 84443; 84484; 85025; 85379; 87040; 87077; 87086; 87186; 87635; 93005; 93306; 93458; 94760; 96361; 96365; 96366; 96367; 96375; 99152; 99153; C9113; J0696; J1200; J1644; J1885; J2250; J2270; J2930; J3010; J3370; J3490; J7512; Q0163; Q9967; S0028; U0003

== ENCOUNTER 2020-09-29 20:44 | Inpatient (IN) | payer MEDICARE, OTHER ==
[2020-09-29] MEDS ORDERED: Vancomycin 1 GM/200 ML BAG ONE (21:04)
[2020-09-29 21:22] LABS: #Basophils 0.1 thou/uL (0.0-0.2); #Eosinphils 0.1 thou/uL (0.0-0.7); #Lymphocytes 2.3 thou/uL (1.20-3.40); #Monocytes 1.2 thou/uL (0.11-0.59); #Neutrophils 10.8 thou/uL (1.40-6.50); %Basophils 0.5 % (0.0-1.0); %Eosinophils 0.6 % (0.0-10.0); %Lymphocytes 15.9 % (21.0-51.0); %Monocytes 8.3 % (0.0-10.0); %Neutrophils 74.6 % (42.0-75.0); Hemoglobin 10.3 g/dL (12.0-16.0); Mean Corpuscular HGB CONC 31.1 g/dL (32.0-36.0); Mean Corpuscular Hemoglobin 31.6 pg (27.0-31.0); Mean Platelet Volume 8.4 fL (7.4-10.4); Platelet Count 163 thou/uL (130-400); RBC Distribution Width 14.2 % (11.5-14.5); Red Blood Cell (RBC) Count 3.27 mill/uL (4.20-5.40); White Blood Cell (WBC) Count 14.4 thou/uL (4.8-10.8)
[2020-09-29 21:30] LABS: INR-International Normal Ratio 0.9; PTT 23.8 sec (22.9-36.1); Prothrombin Time 12.4 sec (12.0-14.7)
[2020-09-29] MEDS ORDERED: Morphine 4 MG/ML VIAL ONE (21:39)
[2020-09-29 21:45] LABS: ALT (SGPT) 15 U/L (8-55); AST (SGOT) 20 U/L (5-34); Albumin 4.1 g/dL (3.4-4.8); Alkaline Phosphatase 72 U/L (40-110); BUN (Urea Nitrogen) 28 mg/dL (9.8-20.1); Bilirubin, Total Less than 0.2 mg/dL (0.2-1.2); Calc. Creatinine Clearance 0 mL/min (70-130); Calcium 9.2 mg/dL (7.8-10.44); Globulin 2.8 g/dL (2.4-3.5); Glucose 120 mg/dL (80-115); Protein, Total 6.9 g/dL (5.8-8.1)
[2020-09-29 21:54] LABS: Anion Gap 20 mmol/L (10-20); Carbon Dioxide 33 mmol/L (23-31); Chloride 87 mmol/L (98-107); Potassium 4.7 mmol/L (3.5-5.1); Sodium 135 mmol/L (136-145)
[2020-09-29 22:11] LABS: Bilirubin Negative (Negative); Blood, Urine Negative (Negative); Clarity Clear (Clear); Glucose, Urine (Dipstick) Normal (Negative); Ketone, Urine Negative (Negative); Leukocyte Negative Leu/uL (Negative); Nitrite Negative (Negative); Protein, Urine (Dipstick) 10 mg/dL (Neg-Trace); Specific Gravity, Urine 1.017 (1.002-1.036); Urobilinogen Normal mg/dL (Less than 2)
[2020-09-29] MEDS ORDERED: Cefepime 2 GM VIAL ONE (22:35)
[2020-09-30] MEDS ORDERED: Acetaminophen 325 MG TAB PO PRN (01:30)
[2020-09-30] MEDS ORDERED: Ondansetron ODT 4 MG TAB SL PRN (01:30)
[2020-09-30] MEDS ORDERED: Ondansetron PF 4 MG/2 ML Vial IVP PRN ×2 (01:30→01:41)
[2020-09-30] MEDS ORDERED: Albuterol Sulfate 2.5 mg/3 ml Neb NEB PRN (01:44)
[2020-09-30] MEDS ORDERED: Mag-Al 1200 mg/1200 mg/30 ML UDCUP PO SCH (02:00)
[2020-09-30] MEDS: methylPREDNISolone Sod Succ 40 MG VIAL IVP SCH (02:23)
[2020-09-30] MEDS: HYDROcodone/Acetaminophen 5/325 mg Tablet PO PRN ×4 (02:26→17:06)
[2020-09-30] MEDS ORDERED: Furosemide 20 MG/2 ML VIAL SLOW IVP SCH (04:45)
[2020-09-30] MEDS ORDERED: Cefepime 2 GM in Sodium Chloride 0.9% 100 ML IVPB SCH (06:00)
[2020-09-30 06:10] LABS: #Basophils 0.1 thou/uL (0.0-0.2); #Eosinphils 0.1 thou/uL (0.0-0.7); #Lymphocytes 1.3 thou/uL (1.20-3.40); #Monocytes 0.7 thou/uL (0.11-0.59); #Neutrophils 12.2 thou/uL (1.40-6.50); %Basophils 0.4 % (0.0-1.0); %Eosinophils 0.6 % (0.0-10.0); %Lymphocytes 9.2 % (21.0-51.0); %Monocytes 4.8 % (0.0-10.0); Hemoglobin 10.1 g/dL (12.0-16.0); Mean Corpuscular HGB CONC 29.6 g/dL (32.0-36.0); Mean Corpuscular Hemoglobin 30.3 pg (27.0-31.0); Mean Platelet Volume 10.2 fL (7.4-10.4); Platelet Count 181 thou/uL (130-400); RBC Distribution Width 14.3 % (11.5-14.5); Red Blood Cell (RBC) Count 3.32 mill/uL (4.20-5.40); White Blood Cell (WBC) Count 14.3 thou/uL (4.8-10.8)
[2020-09-30 06:27] LABS: Anion Gap 16 mmol/L (10-20); BUN (Urea Nitrogen) 22 mg/dL (9.8-20.1); Calc. Creatinine Clearance 137 mL/min (70-130); Calcium 9.1 mg/dL (7.8-10.44); Carbon Dioxide 34 mmol/L (23-31); Chloride 89 mmol/L (98-107); Glucose 97 mg/dL (80-115); Potassium 4.5 mmol/L (3.5-5.1); Sodium 134 mmol/L (136-145)
[2020-09-30] MEDS: Furosemide 20 MG/2 ML VIAL SLOW IVP SCH ×2 (08:28→13:30)
[2020-09-30] MEDS: Famotidine/PF 20 mg/2ml Vial SLOW IVP SCH ×2 (08:28→20:49)
[2020-09-30 08:43] LABS: SARS-CoV-2 PCR by NAA Not Detected (NotDetected)
[2020-09-30] MEDS ORDERED: Vancomycin 1 GM in Premix Bag 1 BAG IVPB SCH (09:00)
[2020-09-30] MEDS: Vancomycin 1 GM in Premix Bag 1 BAG IVPB SCH ×2 (09:39→20:49)
[2020-09-30] MEDS: Acetaminophen 325 MG TAB PO PRN (20:48)
[2020-10-01] MEDS: HYDROcodone/Acetaminophen 5/325 mg Tablet PO PRN ×4 (02:34→19:45)
[2020-10-01] MEDS: methylPREDNISolone Sod Succ 40 MG VIAL IVP SCH (02:34)
[2020-10-01 04:52] LABS: Actual Bicarbonate (HCO3a) 42.1 mEq/L (22-28); Base Excess (BEa) 14.1 mEq/L (-2.0 to +3.0); Calcium, Ionized (arterial) 1.16 mmol/L (1.12-1.30); Hemoglobin (Hb) 10.3 g/dL (12.0-16.0); Potassium - ABG Lab 4.11 mmol/L (3.70-5.30); pH, Arterial 7.36 (7.35-7.45)
[2020-10-01 04:56] LABS: CO2 Tension 75.9 mmHg (35.0-45.0)
[2020-10-01 04:57] LABS: ALV-art Gradient 133.325 mmHg (0-20); Puncture Site RRA
[2020-10-01] MEDS: Acetaminophen 325 MG TAB PO PRN (05:49)
[2020-10-01] MEDS: Furosemide 20 MG/2 ML VIAL SLOW IVP SCH ×2 (05:50→14:43)
[2020-10-01 06:24] LABS: #Eosinphils 0.2 thou/uL (0.0-0.7); #Lymphocytes 1.3 thou/uL (1.20-3.40); #Monocytes 0.5 thou/uL (0.11-0.59); #Neutrophils 12.6 thou/uL (1.40-6.50); %Basophils 0.3 % (0.0-1.0); %Eosinophils 1.4 % (0.0-10.0); %Lymphocytes 8.7 % (21.0-51.0); %Monocytes 3.6 % (0.0-10.0); Hemoglobin 9.9 g/dL (12.0-16.0); Mean Corpuscular HGB CONC 29.1 g/dL (32.0-36.0); Mean Corpuscular Hemoglobin 29.8 pg (27.0-31.0); Mean Platelet Volume 8.1 fL (7.4-10.4); Platelet Count 278 thou/uL (130-400); RBC Distribution Width 14.3 % (11.5-14.5); Red Blood Cell (RBC) Count 3.33 mill/uL (4.20-5.40); White Blood Cell (WBC) Count 14.6 thou/uL (4.8-10.8)
[2020-10-01 06:45] LABS: BUN (Urea Nitrogen) 12 mg/dL (9.8-20.1); Calc. Creatinine Clearance 148 mL/min (70-130); Calcium 9.4 mg/dL (7.8-10.44); Glucose 125 mg/dL (80-115)
[2020-10-01 06:54] LABS: Anion Gap 17 mmol/L (10-20); Carbon Dioxide 35 mmol/L (23-31); Chloride 88 mmol/L (98-107); Potassium 4.1 mmol/L (3.5-5.1); Sodium 136 mmol/L (136-145)
[2020-10-01] MEDS: Famotidine/PF 20 mg/2ml Vial SLOW IVP SCH ×2 (08:32→21:32)
[2020-10-01] MEDS: Vancomycin 1 GM in Premix Bag 1 BAG IVPB SCH (08:32)
[2020-10-01 08:58] LABS: Vancomycin, Trough 10.9 ug/mL
[2020-10-01] MEDS ORDERED: Non-Formulary Item 1 EACH (Tizanidine Hcl [Tizanidine Hcl] 2 MG Tablet) PO PRN (09:10)
[2020-10-01] MEDS: busPIRone HCl 10 MG TAB PO SCH ×2 (14:44→21:31)
[2020-10-01] MEDS ORDERED: VANCOMYCIN 1.25 GM/250 ML BAG 1.25 GM in Premix Bag 1 BAG IVPB SCH (21:00)
[2020-10-01] MEDS: lamoTRIgine 100 MG TAB PO SCH (21:31)
[2020-10-01] MEDS: traZODone HCl 50 MG TAB PO PRN (21:32)
[2020-10-01] MEDS: Oxybutynin 5 MG TAB PO SCH (21:32)
[2020-10-02] MEDS ORDERED: hydrALAZINE 20 MG/ML VIAL ONE (04:23)
[2020-10-02] MEDS: methylPREDNISolone Sod Succ 40 MG VIAL IVP SCH (05:49)
[2020-10-02] MEDS: Furosemide 20 MG/2 ML VIAL SLOW IVP SCH ×2 (05:49→14:36)
[2020-10-02 05:51] LABS: #Basophils 0.1 thou/uL (0.0-0.2); #Eosinphils 0.5 thou/uL (0.0-0.7); #Lymphocytes 2.3 thou/uL (1.20-3.40); #Monocytes 1.3 thou/uL (0.11-0.59); #Neutrophils 9.4 thou/uL (1.40-6.50); %Basophils 0.6 % (0.0-1.0); %Eosinophils 3.8 % (0.0-10.0); %Monocytes 9.3 % (0.0-10.0); %Neutrophils 69.2 % (42.0-75.0); Hemoglobin 9.7 g/dL (12.0-16.0); Mean Corpuscular HGB CONC 30.9 g/dL (32.0-36.0); Mean Corpuscular Hemoglobin 31.7 pg (27.0-31.0); Mean Platelet Volume 7.9 fL (7.4-10.4); Platelet Count 276 thou/uL (130-400); RBC Distribution Width 14.1 % (11.5-14.5); Red Blood Cell (RBC) Count 3.05 mill/uL (4.20-5.40); White Blood Cell (WBC) Count 13.6 thou/uL (4.8-10.8)
[2020-10-02 05:52] LABS: BUN (Urea Nitrogen) 9 mg/dL (9.8-20.1); Calc. Creatinine Clearance 130 mL/min (70-130); Calcium 9.5 mg/dL (7.8-10.44); Glucose 100 mg/dL (80-115)
[2020-10-02 05:53] LABS: Anion Gap 18 mmol/L (10-20); Carbon Dioxide 36 mmol/L (23-31); Chloride 87 mmol/L (98-107); Potassium 3.7 mmol/L (3.5-5.1); Sodium 137 mmol/L (136-145)
[2020-10-02] MEDS ORDERED: hydrALAZINE 20 MG/ML VIAL SLOW IVP PRN (06:11)
[2020-10-02] MEDS: HYDROcodone/Acetaminophen 5/325 mg Tablet PO PRN ×4 (06:36→20:26)
[2020-10-02] MEDS ORDERED: Non-Formulary Item 1 EACH (Aripiprazole [Abilify] 30 MG Tablet) PO SCH (09:00)
[2020-10-02] MEDS ORDERED: Vancomycin HCl 1.25 GM in Sodium Chloride 0.9% 250 ML 250 ML IVPB SCH (09:00)
[2020-10-02] MEDS ORDERED: ISOSORBIDE MONONITRATE 120 MG PO SCH (09:00)
[2020-10-02] MEDS: Atorvastatin Calcium 40 MG TAB PO SCH (09:03)
[2020-10-02] MEDS: Oxybutynin 5 MG TAB PO SCH ×2 (09:03→20:29)
[2020-10-02] MEDS: busPIRone HCl 10 MG TAB PO SCH ×3 (09:04→20:30)
[2020-10-02] MEDS: Aripiprazole 10 MG TAB PO SCH (09:04)
[2020-10-02] MEDS: Amlodipine 10 MG TAB PO SCH (09:04)
[2020-10-02] MEDS: Famotidine/PF 20 mg/2ml Vial SLOW IVP SCH ×2 (09:04→20:30)
[2020-10-02] MEDS: Modafinil 100 MG TAB PO SCH (09:46)
[2020-10-02] MEDS ORDERED: Metoprolol Tartrate 25 MG TAB PO SCH (10:00)
[2020-10-02] MEDS: Metoprolol Tartrate 25 MG TAB PO SCH (20:29)
[2020-10-02] MEDS: lamoTRIgine 100 MG TAB PO SCH (20:29)
[2020-10-02] MEDS: traZODone HCl 50 MG TAB PO PRN (21:43)
[2020-10-03] MEDS: Clindamycin 150 MG CAP PO SCH ×4 (00:46→23:00)
[2020-10-03] MEDS: tiZANidine HCl 4 MG TAB PO PRN (01:02)
[2020-10-03] MEDS: HYDROcodone/Acetaminophen 5/325 mg Tablet PO PRN ×5 (05:40→23:22)
[2020-10-03] MEDS: Furosemide 20 MG/2 ML VIAL SLOW IVP SCH ×2 (05:43→14:51)
[2020-10-03] MEDS: Metoprolol Tartrate 25 MG TAB PO SCH ×2 (09:22→19:59)
[2020-10-03] MEDS: Amlodipine 10 MG TAB PO SCH (09:22)
[2020-10-03] MEDS: Aripiprazole 10 MG TAB PO SCH (09:22)
[2020-10-03] MEDS: Atorvastatin Calcium 40 MG TAB PO SCH (09:22)
[2020-10-03] MEDS: Oxybutynin 5 MG TAB PO SCH ×2 (09:22→19:58)
[2020-10-03] MEDS: busPIRone HCl 10 MG TAB PO SCH ×3 (09:22→19:59)
[2020-10-03] MEDS: Famotidine/PF 20 mg/2ml Vial SLOW IVP SCH ×2 (09:23→19:59)
[2020-10-03 09:34] LABS: Vancomycin, Trough 7.9 ug/mL
[2020-10-03 10:49] LABS: Actual Bicarbonate (HCO3a) 46.9 mEq/L (22-28); Base Excess (BEa) 17.6 mEq/L (-2.0 to +3.0); Calcium, Ionized (arterial) 1.22 mmol/L (1.12-1.30); Carboxyhemoglobin (COHb) 1.1 gm% (0.0-3.0); Hemoglobin (Hb) 10.5 g/dL (12.0-16.0); O2 Tension (PaO2), arterial 72.1 mmHg (> 80.0); Potassium - ABG Lab 4.26 mmol/L (3.70-5.30); pH, Arterial 7.34 (7.35-7.45)
[2020-10-03 10:52] LABS: CO2 Tension 89.8 mmHg (35.0-45.0); Puncture Site RRA
[2020-10-03] MEDS: Modafinil 100 MG TAB PO SCH (11:06)
[2020-10-03] MEDS: lamoTRIgine 100 MG TAB PO SCH (19:59)
[2020-10-03] MEDS: traZODone HCl 50 MG TAB PO PRN (20:43)
[2020-10-04] MEDS: HYDROcodone/Acetaminophen 5/325 mg Tablet PO PRN ×5 (03:32→18:20)
[2020-10-04] MEDS: Furosemide 20 MG/2 ML VIAL SLOW IVP SCH ×2 (06:12→14:36)
[2020-10-04] MEDS: Metoprolol Tartrate 25 MG TAB PO SCH ×2 (09:28→20:50)
[2020-10-04] MEDS: Clindamycin 150 MG CAP PO SCH ×3 (09:28→23:17)
[2020-10-04] MEDS: Oxybutynin 5 MG TAB PO SCH ×2 (09:28→20:50)
[2020-10-04] MEDS: Famotidine/PF 20 mg/2ml Vial SLOW IVP SCH ×2 (09:28→20:50)
[2020-10-04] MEDS: busPIRone HCl 10 MG TAB PO SCH ×3 (09:29→20:50)
[2020-10-04] MEDS: Amlodipine 10 MG TAB PO SCH (09:29)
[2020-10-04] MEDS: Atorvastatin Calcium 40 MG TAB PO SCH (09:29)
[2020-10-04] MEDS: Aripiprazole 10 MG TAB PO SCH (09:29)
[2020-10-04] MEDS ORDERED: acetaZOLAMIDE Sodium 500 mg Vial IVP SCH (10:15)
[2020-10-04] MEDS ORDERED: Sterile Water 10 ML ONE (11:00)
[2020-10-04] MEDS: Polyethylene Glycol 3350 17 GM Packet PO PRN (11:06)
[2020-10-04] MEDS: Modafinil 100 MG TAB PO SCH (11:06)
[2020-10-04] MEDS: lamoTRIgine 100 MG TAB PO SCH (20:50)
[2020-10-04] MEDS: traZODone HCl 50 MG TAB PO PRN (20:53)
[2020-10-05] MEDS: Clindamycin 150 MG CAP PO SCH ×4 (00:14→23:41)
[2020-10-05] MEDS: HYDROcodone/Acetaminophen 5/325 mg Tablet PO PRN ×6 (00:15→21:32)
[2020-10-05] MEDS: Furosemide 20 MG/2 ML VIAL SLOW IVP SCH ×2 (05:19→14:11)
[2020-10-05] MEDS: Aripiprazole 10 MG TAB PO SCH (08:15)
[2020-10-05] MEDS: Amlodipine 10 MG TAB PO SCH (08:16)
[2020-10-05] MEDS: Atorvastatin Calcium 40 MG TAB PO SCH (08:16)
[2020-10-05] MEDS: busPIRone HCl 10 MG TAB PO SCH ×3 (08:16→21:32)
[2020-10-05] MEDS: Famotidine/PF 20 mg/2ml Vial SLOW IVP SCH ×2 (08:17→21:32)
[2020-10-05] MEDS: Oxybutynin 5 MG TAB PO SCH ×2 (08:17→21:32)
[2020-10-05] MEDS: Metoprolol Tartrate 25 MG TAB PO SCH ×2 (08:17→21:32)
[2020-10-05] MEDS: Polyethylene Glycol 3350 17 GM Packet PO PRN (08:20)
[2020-10-05 09:06] LABS: Hemoglobin 10.2 g/dL (12.0-16.0); Mean Corpuscular Hemoglobin 30.6 pg (27.0-31.0); Mean Corpuscular Volume 98.9 fL (78.0-98.0); Mean Platelet Volume 7.9 fL (7.4-10.4); Platelet Count 269 thou/uL (130-400); RBC Distribution Width 14.1 % (11.5-14.5); Red Blood Cell (RBC) Count 3.34 mill/uL (4.20-5.40); White Blood Cell (WBC) Count 13.4 thou/uL (4.8-10.8)
[2020-10-05 09:25] LABS: ALT (SGPT) 11 U/L (8-55); AST (SGOT) 15 U/L (5-34); Albumin 3.9 g/dL (3.4-4.8); Alkaline Phosphatase 64 U/L (40-110); Anion Gap 12 mmol/L (10-20); BUN (Urea Nitrogen) 14 mg/dL (9.8-20.1); Bilirubin, Total 0.3 mg/dL (0.2-1.2); Calc. Creatinine Clearance 102 mL/min (70-130); Calcium 9.3 mg/dL (7.8-10.44); Carbon Dioxide 33 mmol/L (23-31); Chloride 87 mmol/L (98-107); Globulin 2.7 g/dL (2.4-3.5); Glucose 114 mg/dL (80-115); Protein, Total 6.6 g/dL (5.8-8.1); Sodium 128 mmol/L (136-145)
[2020-10-05 09:50] LABS: Thyroid Stimulating Hormone 0.4702 uIU/mL (0.35-4.94)
[2020-10-05] MEDS: Modafinil 100 MG TAB PO SCH (09:54)
[2020-10-05] MEDS: Lorazepam 0.5 MG TAB PO PRN (14:12)
[2020-10-05] MEDS: traZODone HCl 50 MG TAB PO PRN (21:32)
[2020-10-05] MEDS: lamoTRIgine 100 MG TAB PO SCH (21:32)
[2020-10-06] MEDS: HYDROcodone/Acetaminophen 5/325 mg Tablet PO PRN ×5 (01:29→22:02)
[2020-10-06] MEDS: Lorazepam 0.5 MG TAB PO PRN (01:30)
[2020-10-06] MEDS: Furosemide 20 MG/2 ML VIAL SLOW IVP SCH (05:18)
[2020-10-06] MEDS: Aripiprazole 10 MG TAB PO SCH (09:15)
[2020-10-06] MEDS: Metoprolol Tartrate 25 MG TAB PO SCH ×2 (09:16→20:56)
[2020-10-06] MEDS: Amlodipine 10 MG TAB PO SCH (09:16)
[2020-10-06] MEDS: Modafinil 100 MG TAB PO SCH (09:16)
[2020-10-06] MEDS: Clindamycin 150 MG CAP PO SCH ×2 (09:16→14:11)
[2020-10-06] MEDS: Atorvastatin Calcium 40 MG TAB PO SCH (09:17)
[2020-10-06] MEDS: Oxybutynin 5 MG TAB PO SCH ×2 (09:17→20:56)
[2020-10-06] MEDS: busPIRone HCl 10 MG TAB PO SCH ×3 (09:17→20:56)
[2020-10-06] MEDS: Polyethylene Glycol 3350 17 GM Packet PO PRN (09:17)
[2020-10-06] MEDS: Famotidine/PF 20 mg/2ml Vial SLOW IVP SCH ×2 (09:17→20:56)
[2020-10-06] MEDS: lamoTRIgine 100 MG TAB PO SCH (20:56)
[2020-10-06] MEDS: traZODone HCl 50 MG TAB PO PRN (22:02)
[2020-10-07] MEDS: Clindamycin 150 MG CAP PO SCH ×3 (00:02→14:01)
[2020-10-07] MEDS: Lorazepam 0.5 MG TAB PO PRN ×2 (01:13→21:32)
[2020-10-07] MEDS: HYDROcodone/Acetaminophen 5/325 mg Tablet PO PRN ×4 (01:57→21:25)
[2020-10-07] MEDS: Atorvastatin Calcium 40 MG TAB PO SCH (07:45)
[2020-10-07] MEDS: Famotidine/PF 20 mg/2ml Vial SLOW IVP SCH ×2 (07:45→21:25)
[2020-10-07] MEDS: Amlodipine 10 MG TAB PO SCH (07:46)
[2020-10-07] MEDS: Oxybutynin 5 MG TAB PO SCH ×2 (07:46→21:24)
[2020-10-07] MEDS: Aripiprazole 10 MG TAB PO SCH (07:46)
[2020-10-07] MEDS: busPIRone HCl 10 MG TAB PO SCH ×3 (07:46→21:24)
[2020-10-07] MEDS: Metoprolol Tartrate 25 MG TAB PO SCH ×2 (07:52→21:24)
[2020-10-07 08:37] LABS: Hemoglobin 10.2 g/dL (12.0-16.0); Mean Corpuscular Hemoglobin 29.2 pg (27.0-31.0); Mean Corpuscular Volume 97.4 fL (78.0-98.0); Mean Platelet Volume 7.6 fL (7.4-10.4); Platelet Count 327 thou/uL (130-400); RBC Distribution Width 14.1 % (11.5-14.5); Red Blood Cell (RBC) Count 3.49 mill/uL (4.20-5.40)
[2020-10-07 08:52] LABS: Anion Gap 12 mmol/L (10-20); BUN (Urea Nitrogen) 14 mg/dL (9.8-20.1); Calc. Creatinine Clearance 118 mL/min (70-130); Calcium 9.3 mg/dL (7.8-10.44); Carbon Dioxide 34 mmol/L (23-31); Chloride 86 mmol/L (98-107); Glucose 110 mg/dL (80-115); Potassium 4.5 mmol/L (3.5-5.1); Sodium 127 mmol/L (136-145)
[2020-10-07] MEDS: Modafinil 100 MG TAB PO SCH (09:11)
[2020-10-07] MEDS: Calcium Carbonate 500 MG ChewTAB PO PRN (09:14)
[2020-10-07 11:12] VITALS: BMI 44.3
[2020-10-07] MEDS: Sodium Chloride 0.9% 1,000 ML IV SCH (16:08)
[2020-10-07] MEDS: lamoTRIgine 100 MG TAB PO SCH (21:24)
[2020-10-07] MEDS: traZODone HCl 50 MG TAB PO PRN (21:32)
[2020-10-08] MEDS: Clindamycin 150 MG CAP PO SCH ×3 (01:40→14:23)
[2020-10-08] MEDS: HYDROcodone/Acetaminophen 5/325 mg Tablet PO PRN ×4 (03:42→20:11)
[2020-10-08] MEDS: Famotidine/PF 20 mg/2ml Vial SLOW IVP SCH ×2 (08:05→20:12)
[2020-10-08] MEDS: Metoprolol Tartrate 25 MG TAB PO SCH ×2 (08:06→20:12)
[2020-10-08] MEDS: busPIRone HCl 10 MG TAB PO SCH ×3 (08:06→20:12)
[2020-10-08] MEDS: Atorvastatin Calcium 40 MG TAB PO SCH (08:06)
[2020-10-08] MEDS: Oxybutynin 5 MG TAB PO SCH ×2 (08:06→20:12)
[2020-10-08] MEDS: Amlodipine 10 MG TAB PO SCH (08:06)
[2020-10-08] MEDS: Aripiprazole 10 MG TAB PO SCH (08:06)
[2020-10-08] MEDS: Sodium Chloride 0.9% 1,000 ML IV SCH (12:00)
[2020-10-08] MEDS ORDERED: HYDROcodone/Acetaminophen 5/325 mg Tablet ONE (12:28)
[2020-10-08] MEDS: Modafinil 100 MG TAB PO SCH (13:54)
[2020-10-08] MEDS: Lorazepam 0.5 MG TAB PO PRN (14:24)
[2020-10-08] MEDS ORDERED: Calcium Carbonate 500 MG ChewTAB PO PRN (15:38)
[2020-10-08 16:49] LABS: Hemoglobin 10.1 g/dL (12.0-16.0); Mean Corpuscular HGB CONC 30.2 g/dL (32.0-36.0); Mean Corpuscular Volume 95.9 fL (78.0-98.0); Mean Platelet Volume 9.8 fL (7.4-10.4); Platelet Count 285 thou/uL (130-400); RBC Distribution Width 14.2 % (11.5-14.5); Red Blood Cell (RBC) Count 3.47 mill/uL (4.20-5.40); White Blood Cell (WBC) Count 12.5 thou/uL (4.8-10.8)
[2020-10-08 17:05] LABS: Sodium 126 mmol/L (136-145)
[2020-10-08] MEDS: lamoTRIgine 100 MG TAB PO SCH (20:12)
[2020-10-08] MEDS: traZODone HCl 50 MG TAB PO PRN (20:13)
[2020-10-09] MEDS: Clindamycin 150 MG CAP PO SCH ×3 (00:23→14:59)
[2020-10-09] MEDS: Lorazepam 0.5 MG TAB PO PRN (00:23)
[2020-10-09] MEDS: HYDROcodone/Acetaminophen 5/325 mg Tablet PO PRN ×5 (00:23→20:10)
[2020-10-09] MEDS: Calcium Carbonate 500 MG ChewTAB PO PRN ×2 (00:29→09:47)
[2020-10-09] MEDS: tiZANidine HCl 4 MG TAB PO PRN ×2 (03:26→20:09)
[2020-10-09] MEDS: Amlodipine 10 MG TAB PO SCH (09:27)
[2020-10-09] MEDS: Atorvastatin Calcium 40 MG TAB PO SCH (09:27)
[2020-10-09] MEDS: Metoprolol Tartrate 25 MG TAB PO SCH ×2 (09:27→20:09)
[2020-10-09] MEDS: busPIRone HCl 10 MG TAB PO SCH ×3 (09:27→20:09)
[2020-10-09] MEDS: Aripiprazole 10 MG TAB PO SCH (09:27)
[2020-10-09] MEDS: Oxybutynin 5 MG TAB PO SCH ×2 (09:28→20:09)
[2020-10-09] MEDS: Sodium Chloride 0.9% 1,000 ML IV SCH (09:28)
[2020-10-09] MEDS: Famotidine/PF 20 mg/2ml Vial SLOW IVP SCH ×2 (09:28→20:11)
[2020-10-09] MEDS: Modafinil 100 MG TAB PO SCH (09:47)
[2020-10-09] MEDS: Polyethylene Glycol 3350 17 GM Packet PO PRN (09:47)
[2020-10-09] MEDS: Mag-Al 1200 mg/1200 mg/30 ML UDCUP PO PRN (13:08)
[2020-10-09] MEDS: lamoTRIgine 100 MG TAB PO SCH (20:09)
[2020-10-09] MEDS: traZODone HCl 50 MG TAB PO PRN (20:09)
[2020-10-10] MEDS: Clindamycin 150 MG CAP PO SCH ×3 (00:24→14:16)
[2020-10-10] MEDS: Lorazepam 0.5 MG TAB PO PRN (00:24)
[2020-10-10] MEDS: HYDROcodone/Acetaminophen 5/325 mg Tablet PO PRN (00:24)
[2020-10-10] MEDS: Mag-Al 1200 mg/1200 mg/30 ML UDCUP PO PRN (00:25)
[2020-10-10] MEDS: tiZANidine HCl 4 MG TAB PO PRN (05:38)
[2020-10-10 07:27] LABS: Hemoglobin 9.4 g/dL (12.0-16.0); Mean Corpuscular HGB CONC 31.3 g/dL (32.0-36.0); Mean Corpuscular Hemoglobin 30.3 pg (27.0-31.0); Mean Corpuscular Volume 96.7 fL (78.0-98.0); Mean Platelet Volume 8.3 fL (7.4-10.4); Platelet Count 288 thou/uL (130-400); Red Blood Cell (RBC) Count 3.09 mill/uL (4.20-5.40); White Blood Cell (WBC) Count 11.9 thou/uL (4.8-10.8)
[2020-10-10 07:31] LABS: Anion Gap 11 mmol/L (10-20); BUN (Urea Nitrogen) 10 mg/dL (9.8-20.1); Calc. Creatinine Clearance 137 mL/min (70-130); Calcium 9.4 mg/dL (7.8-10.44); Carbon Dioxide 34 mmol/L (23-31); Chloride 88 mmol/L (98-107); Glucose 102 mg/dL (80-115); Potassium 4.7 mmol/L (3.5-5.1); Sodium 128 mmol/L (136-145)
[2020-10-10] MEDS: Aripiprazole 10 MG TAB PO SCH (08:39)
[2020-10-10] MEDS: Metoprolol Tartrate 25 MG TAB PO SCH ×2 (08:40→20:56)
[2020-10-10] MEDS: Atorvastatin Calcium 40 MG TAB PO SCH (08:41)
[2020-10-10] MEDS: Amlodipine 10 MG TAB PO SCH (08:41)
[2020-10-10] MEDS: Oxybutynin 5 MG TAB PO SCH ×2 (08:41→20:56)
[2020-10-10] MEDS: Famotidine/PF 20 mg/2ml Vial SLOW IVP SCH ×2 (08:42→20:58)
[2020-10-10] MEDS: busPIRone HCl 10 MG TAB PO SCH ×3 (08:42→20:56)
[2020-10-10] MEDS: Acetaminophen 325 MG TAB PO PRN (10:11)
[2020-10-10] MEDS: Modafinil 100 MG TAB PO SCH (11:12)
[2020-10-10] MEDS ORDERED: HYDROcodone/Acetaminophen 10/325 mg Tablet PO SCH (16:30)
[2020-10-10] MEDS ORDERED: Fluticasone Propionate Nasal Spray 16 gm Bottle NASAL SCH (16:41)
[2020-10-10] MEDS ORDERED: Mometasone Furoate 30 PUFF 220 MCG INH SCH (18:30)
[2020-10-10] MEDS: lamoTRIgine 100 MG TAB PO SCH (20:56)
[2020-10-10] MEDS: HYDROcodone/Acetaminophen 10/325 mg Tablet PO SCH (20:57)
[2020-10-11] MEDS: Mag-Al 1200 mg/1200 mg/30 ML UDCUP PO PRN (00:33)
[2020-10-11] MEDS: Clindamycin 150 MG CAP PO SCH ×2 (00:33→08:24)
[2020-10-11] MEDS: Metoprolol Tartrate 25 MG TAB PO SCH ×2 (08:23→22:26)
[2020-10-11] MEDS: Amlodipine 10 MG TAB PO SCH (08:23)
[2020-10-11] MEDS: Atorvastatin Calcium 40 MG TAB PO SCH (08:24)
[2020-10-11] MEDS: Oxybutynin 5 MG TAB PO SCH ×2 (08:24→23:32)
[2020-10-11] MEDS: HYDROcodone/Acetaminophen 10/325 mg Tablet PO SCH ×3 (08:25→22:24)
[2020-10-11] MEDS: Aripiprazole 10 MG TAB PO SCH (08:25)
[2020-10-11] MEDS: Modafinil 100 MG TAB PO SCH (08:25)
[2020-10-11] MEDS: busPIRone HCl 10 MG TAB PO SCH ×3 (08:25→22:24)
[2020-10-11] MEDS: Famotidine/PF 20 mg/2ml Vial SLOW IVP SCH ×2 (08:25→22:24)
[2020-10-11 09:24] LABS: Hemoglobin 9.8 g/dL (12.0-16.0); Mean Corpuscular HGB CONC 30.5 g/dL (32.0-36.0); Mean Corpuscular Hemoglobin 29.5 pg (27.0-31.0); Mean Corpuscular Volume 96.6 fL (78.0-98.0); Mean Platelet Volume 7.5 fL (7.4-10.4); Platelet Count 293 thou/uL (130-400); RBC Distribution Width 13.8 % (11.5-14.5); Red Blood Cell (RBC) Count 3.33 mill/uL (4.20-5.40); White Blood Cell (WBC) Count 15.1 thou/uL (4.8-10.8)
[2020-10-11 09:46] LABS: Anion Gap 11 mmol/L (10-20); BUN (Urea Nitrogen) 11 mg/dL (9.8-20.1); Calc. Creatinine Clearance 141 mL/min (70-130); Calcium 9.5 mg/dL (7.8-10.44); Carbon Dioxide 35 mmol/L (23-31); Chloride 88 mmol/L (98-107); Glucose 138 mg/dL (80-115); Sodium 129 mmol/L (136-145)
[2020-10-11 10:35] LABS: Actual Bicarbonate (HCO3a) 36.5 mEq/L (22-28); Base Excess (BEa) 7.1 mEq/L (-2.0 to +3.0); Calcium, Ionized (arterial) 1.25 mmol/L (1.12-1.30); Carboxyhemoglobin (COHb) 1.2 gm% (0.0-3.0); Hemoglobin (Hb) 10.1 g/dL (12.0-16.0); Potassium - ABG Lab 4.89 mmol/L (3.70-5.30)
[2020-10-11 10:48] LABS: CO2 Tension 86.8 mmHg (35.0-45.0); O2 Tension (PaO2), arterial 57.3 mmHg (> 80.0); Puncture Site RRA; pH, Arterial 7.24 (7.35-7.45)
[2020-10-11] MEDS ORDERED: MEROPENEM 1 GM/50 ML 1 GM in Premix Bag 1 BAG IVPB SCH (11:00)
[2020-10-11] MEDS: lamoTRIgine 100 MG TAB PO SCH (22:25)
[2020-10-12 07:04] LABS: Hemoglobin 9.4 g/dL (12.0-16.0); Mean Corpuscular HGB CONC 30.8 g/dL (32.0-36.0); Mean Corpuscular Hemoglobin 29.8 pg (27.0-31.0); Mean Corpuscular Volume 96.8 fL (78.0-98.0); Mean Platelet Volume 7.6 fL (7.4-10.4); Platelet Count 279 thou/uL (130-400); RBC Distribution Width 13.9 % (11.5-14.5); Red Blood Cell (RBC) Count 3.15 mill/uL (4.20-5.40); White Blood Cell (WBC) Count 11.1 thou/uL (4.8-10.8)
[2020-10-12 07:26] LABS: BUN (Urea Nitrogen) 9 mg/dL (9.8-20.1); Calc. Creatinine Clearance 148 mL/min (70-130); Calcium 9.9 mg/dL (7.8-10.44); Glucose 89 mg/dL (80-115)
[2020-10-12 07:35] LABS: Anion Gap 10 mmol/L (10-20); Carbon Dioxide 38 mmol/L (23-31); Chloride 91 mmol/L (98-107); Potassium 4.2 mmol/L (3.5-5.1); Sodium 135 mmol/L (136-145)
[2020-10-12] MEDS: Atorvastatin Calcium 40 MG TAB PO SCH (09:31)
[2020-10-12] MEDS: Aripiprazole 10 MG TAB PO SCH (09:31)
[2020-10-12] MEDS: busPIRone HCl 10 MG TAB PO SCH ×3 (09:32→21:53)
[2020-10-12] MEDS: Metoprolol Tartrate 25 MG TAB PO SCH ×2 (09:32→21:59)
[2020-10-12] MEDS: Famotidine/PF 20 mg/2ml Vial SLOW IVP SCH ×2 (09:32→21:54)
[2020-10-12] MEDS: Amlodipine 10 MG TAB PO SCH (09:33)
[2020-10-12] MEDS: HYDROcodone/Acetaminophen 10/325 mg Tablet PO SCH ×3 (09:33→21:53)
[2020-10-12] MEDS: Oxybutynin 5 MG TAB PO SCH ×2 (10:15→22:43)
[2020-10-12] MEDS: Modafinil 100 MG TAB PO SCH (10:15)
[2020-10-12] MEDS: Lorazepam 0.5 MG TAB PO PRN (10:59)
[2020-10-12] MEDS: lamoTRIgine 100 MG TAB PO SCH (21:53)
[2020-10-13] MEDS: Lorazepam 0.5 MG TAB PO PRN ×3 (01:15→17:52)
[2020-10-13 06:13] LABS: Anion Gap 15 mmol/L (10-20); BUN (Urea Nitrogen) 11 mg/dL (9.8-20.1); Calc. Creatinine Clearance 141 mL/min (70-130); Calcium 9.7 mg/dL (7.8-10.44); Carbon Dioxide 30 mmol/L (23-31); Chloride 95 mmol/L (98-107); Glucose 107 mg/dL (80-115); Sodium 135 mmol/L (136-145)
[2020-10-13] MEDS: HYDROcodone/Acetaminophen 10/325 mg Tablet PO SCH ×3 (08:57→20:40)
[2020-10-13] MEDS: Famotidine/PF 20 mg/2ml Vial SLOW IVP SCH ×2 (08:57→20:41)
[2020-10-13] MEDS: Aripiprazole 10 MG TAB PO SCH (08:57)
[2020-10-13] MEDS: Amlodipine 10 MG TAB PO SCH (08:58)
[2020-10-13] MEDS: busPIRone HCl 10 MG TAB PO SCH ×3 (08:59→20:40)
[2020-10-13] MEDS: Atorvastatin Calcium 40 MG TAB PO SCH (08:59)
[2020-10-13] MEDS: Metoprolol Tartrate 25 MG TAB PO SCH ×2 (09:05→20:42)
[2020-10-13] MEDS: Oxybutynin 5 MG TAB PO SCH ×2 (09:40→20:44)
[2020-10-13] MEDS: Modafinil 100 MG TAB PO SCH (10:04)
[2020-10-13] MEDS: tiZANidine HCl 4 MG TAB PO PRN (13:40)
[2020-10-13] MEDS: lamoTRIgine 100 MG TAB PO SCH (20:40)
[2020-10-13] MEDS: Nystatin Powder 15 GM BOT TOP SCH (20:42)
[2020-10-14 04:42] LABS: BUN (Urea Nitrogen) 14 mg/dL (9.8-20.1); Calc. Creatinine Clearance 135 mL/min (70-130); Calcium 10.1 mg/dL (7.8-10.44); Glucose 109 mg/dL (80-115)
[2020-10-14 04:52] LABS: Anion Gap 11 mmol/L (10-20); Carbon Dioxide 40 mmol/L (23-31); Chloride 91 mmol/L (98-107); Potassium 4.5 mmol/L (3.5-5.1); Sodium 137 mmol/L (136-145)
[2020-10-14] MEDS: Lorazepam 0.5 MG TAB PO PRN (04:55)
[2020-10-14] MEDS: Oxybutynin 5 MG TAB PO SCH ×2 (09:07→20:54)
[2020-10-14] MEDS: Aripiprazole 10 MG TAB PO SCH (09:07)
[2020-10-14] MEDS: Atorvastatin Calcium 40 MG TAB PO SCH (09:07)
[2020-10-14] MEDS: HYDROcodone/Acetaminophen 10/325 mg Tablet PO SCH ×3 (09:07→20:55)
[2020-10-14] MEDS: Metoprolol Tartrate 25 MG TAB PO SCH ×2 (09:07→20:54)
[2020-10-14] MEDS: Amlodipine 10 MG TAB PO SCH (09:07)
[2020-10-14] MEDS: Famotidine/PF 20 mg/2ml Vial SLOW IVP SCH ×2 (09:08→20:54)
[2020-10-14] MEDS: Nystatin Powder 15 GM BOT TOP SCH ×2 (09:09→20:54)
[2020-10-14] MEDS: busPIRone HCl 10 MG TAB PO SCH ×3 (09:15→20:54)
[2020-10-14] MEDS: Modafinil 100 MG TAB PO SCH (09:50)
[2020-10-14] MEDS: tiZANidine HCl 4 MG TAB PO PRN (18:08)
[2020-10-14] MEDS: lamoTRIgine 100 MG TAB PO SCH (20:54)
[2020-10-15] MEDS: Nystatin Powder 15 GM BOT TOP SCH ×2 (09:00→21:38)
[2020-10-15] MEDS: Amlodipine 10 MG TAB PO SCH (10:37)
[2020-10-15] MEDS: Modafinil 100 MG TAB PO SCH (10:37)
[2020-10-15] MEDS: busPIRone HCl 10 MG TAB PO SCH ×3 (10:38→21:37)
[2020-10-15] MEDS: Aripiprazole 10 MG TAB PO SCH (10:38)
[2020-10-15] MEDS: Metoprolol Tartrate 25 MG TAB PO SCH ×2 (10:38→21:37)
[2020-10-15] MEDS: HYDROcodone/Acetaminophen 10/325 mg Tablet PO SCH ×3 (10:38→21:37)
[2020-10-15] MEDS: Atorvastatin Calcium 40 MG TAB PO SCH (10:38)
[2020-10-15] MEDS: Oxybutynin 5 MG TAB PO SCH ×2 (10:38→21:37)
[2020-10-15] MEDS: Famotidine/PF 20 mg/2ml Vial SLOW IVP SCH ×2 (10:40→21:36)
[2020-10-15] MEDS: Lorazepam 0.5 MG TAB PO PRN (11:19)
[2020-10-15] MEDS: lamoTRIgine 100 MG TAB PO SCH (21:37)
[2020-10-16] MEDS: Lorazepam 2 MG/ML VIAL SLOW IVP PRN ×2 (04:56→12:25)
[2020-10-16] MEDS: Aripiprazole 10 MG TAB PO SCH (09:53)
[2020-10-16] MEDS: Atorvastatin Calcium 40 MG TAB PO SCH (09:54)
[2020-10-16] MEDS: Amlodipine 10 MG TAB PO SCH (09:54)
[2020-10-16] MEDS: HYDROcodone/Acetaminophen 10/325 mg Tablet PO SCH ×2 (09:54→15:49)
[2020-10-16] MEDS: busPIRone HCl 10 MG TAB PO SCH ×2 (09:55→15:49)
[2020-10-16] MEDS: Oxybutynin 5 MG TAB PO SCH (09:55)
[2020-10-16] MEDS: Famotidine/PF 20 mg/2ml Vial SLOW IVP SCH (09:55)
[2020-10-16] MEDS: Nystatin Powder 15 GM BOT TOP SCH (09:56)
[2020-10-16] MEDS: Modafinil 100 MG TAB PO SCH (10:09)
[2020-10-16] MEDS: Metoprolol Tartrate 25 MG TAB PO SCH (10:17)
[2020-10-16] MEDS ORDERED: Lorazepam 2 MG/ML VIAL SLOW IVP PRN (12:31)
[2020-10-16 12:54] VITALS: BP 118/56; TEMP 98.1
[2020-10-17] MEDS ORDERED: predniSONE 20 MG TAB PO SCH (08:00)
== END 2020-10-16 17:00 | disposition hospice, inpatient (51) | DRG 871 ==
LOC: ERS 20:44 → 2SE 22:35 → IMCU/EMU 10-01 10:39 → T4-A 10-04 14:10 → CCU 10-11 11:52 → ONC 10-14 14:27
PROVIDERS: ADMIT Internal Medicine; ATTEND Internal Medicine
PROC: 5A09457 Assistance with Respiratory Ventilation, 24-96 Consecutive Hours, Continuous Positive Airway Pressure (ICD-10-PCS; principal; 2020-10-11)
DX: A41.9 Sepsis, unspecified organism (principal); I50.33 Acute on chronic diastolic (congestive) heart failure; J96.21 Acute and chronic respiratory failure with hypoxia; J96.22 Acute and chronic respiratory failure with hypercapnia; L03.115 Cellulitis of right lower limb; S22.43XA Multiple fractures of ribs, bilateral, initial encounter for closed fracture; J44.1 Chronic obstructive pulmonary disease with (acute) exacerbation; E66.2 Morbid (severe) obesity with alveolar hypoventilation; Z68.41 Body mass index [BMI] 40.0-44.9, adult; I42.9 Cardiomyopathy, unspecified; E22.2 Syndrome of inappropriate secretion of antidiuretic hormone; E87.3 Alkalosis; N17.9 Acute kidney failure, unspecified; I13.0 Hypertensive heart and chronic kidney disease with heart failure and stage 1 through stage 4 chronic kidney disease, or unspecified chronic kidney disease; Z20.822 Contact with and (suspected) exposure to COVID-19; Z51.5 Encounter for palliative care; Z66 Do not resuscitate; M81.0 Age-related osteoporosis without current pathological fracture; F31.9 Bipolar disorder, unspecified; S81.811A Laceration without foreign body, right lower leg, initial encounter; I25.10 Atherosclerotic heart disease of native coronary artery without angina pectoris; W19.XXXA Unspecified fall, initial encounter; D53.9 Nutritional anemia, unspecified; D63.1 Anemia in chronic kidney disease; N18.1 Chronic kidney disease, stage 1; F41.9 Anxiety disorder, unspecified; R11.10 Vomiting, unspecified; Z90.710 Acquired absence of both cervix and uterus; Z98.890 Other specified postprocedural states; Z87.891 Personal history of nicotine dependence; Z88.0 Allergy status to penicillin; Z88.8 Allergy status to other drugs, medicaments and biological substances; Z99.81 Dependence on supplemental oxygen; Z91.041 Radiographic dye allergy status; Z79.899 Other long term (current) drug therapy; Z79.51 Long term (current) use of inhaled steroids; Z98.51 Tubal ligation status; Z89.512 Acquired absence of left leg below knee; R62.7 Adult failure to thrive; Z91.19 Patient's noncompliance with other medical treatment and regimen
CPT/HCPCS: 36415; 36600; 71045; 80048; 80053; 80202; 81003; 82607; 82746; 82805; 83605; 83880; 83930; 83935; 84295; 84443; 84484; 85025; 85027; 85610; 85730; 87040; 87086; 90471; 90732; 93005; 94640; 94760; 96365; 96366; 96375; G0009; J0360; J0692; J1120; J1940; J1956; J2060; J2185; J2270; J2920; J3370; J3490; J7050; J7611; J7620; S0028; U0003; U0005

== ENCOUNTER 2020-10-16 17:12 | Inpatient (IN) | payer OTHER ==
[2020-10-16] MEDS ORDERED: Baclofen 10 MG TAB PO PRN (17:34)
[2020-10-16] MEDS ORDERED: HYDROcodone/Acetaminophen 10/325 mg Tablet PO PRN (17:35)
[2020-10-16] MEDS ORDERED: Nitroglycerin 0.4 MG TAB (25 Tab Bottle) SL PRN (17:36)
[2020-10-16] MEDS ORDERED: tiZANidine HCl 4 MG TAB PO PRN (17:36)
[2020-10-16] MEDS ORDERED: Bisacodyl 10 MG SUPP PR PRN (17:38)
[2020-10-16] MEDS ORDERED: Lorazepam 1 MG TAB PO PRN ×2 (17:45)
[2020-10-16] MEDS ORDERED: Ondansetron ODT 4 MG TAB PO PRN (17:45)
[2020-10-16] MEDS ORDERED: Ondansetron PF 4 MG/2 ML Vial IVP PRN (17:45)
[2020-10-16] MEDS ORDERED: Acetaminophen 325 MG TAB PO PRN (17:45)
[2020-10-16] MEDS ORDERED: Acetaminophen 650 MG Suppository PR PRN (17:45)
[2020-10-16] MEDS ORDERED: Scopolamine 1.5 mg/72 hour Patch TOP PRN (17:45)
[2020-10-16] MEDS ORDERED: Lorazepam 2 MG/ML VIAL SLOW IVP PRN (17:45)
[2020-10-16 17:58] VITALS: BMI 51.7
[2020-10-16] MEDS: Lorazepam 2 MG/ML VIAL SLOW IVP PRN (18:51)
[2020-10-16] MEDS: Amlodipine 10 MG TAB PO SCH (20:35)
[2020-10-16] MEDS: lamoTRIgine 100 MG TAB PO SCH (20:36)
[2020-10-16] MEDS: traZODone HCl 50 MG TAB PO SCH (20:36)
[2020-10-17] MEDS: Lorazepam 2 MG/ML VIAL SLOW IVP PRN ×2 (05:26→10:23)
[2020-10-17] MEDS: Furosemide 80 MG TAB PO SCH ×2 (10:01→15:33)
[2020-10-17] MEDS: Lisinopril 20 MG TAB PO SCH (10:07)
[2020-10-17] MEDS: Morphine 4 MG/ML VIAL SLOW IVP PRN (15:04)
[2020-10-17] MEDS: Lorazepam 2 MG/ML VIAL SLOW IVP SCH (21:05)
[2020-10-17] MEDS: traZODone HCl 50 MG TAB PO SCH (21:06)
[2020-10-17] MEDS: lamoTRIgine 100 MG TAB PO SCH (21:06)
[2020-10-17] MEDS: Amlodipine 10 MG TAB PO SCH (21:07)
[2020-10-18] MEDS: Lorazepam 2 MG/ML VIAL SLOW IVP SCH ×6 (00:18→21:04)
[2020-10-18] MEDS: Morphine 4 MG/ML VIAL SLOW IVP PRN ×2 (03:08→15:29)
[2020-10-18] MEDS: Lisinopril 20 MG TAB PO SCH (10:14)
[2020-10-18] MEDS: Furosemide 80 MG TAB PO SCH ×2 (10:14→15:41)
[2020-10-18] MEDS: Amlodipine 10 MG TAB PO SCH (21:03)
[2020-10-18] MEDS: lamoTRIgine 100 MG TAB PO SCH (21:03)
[2020-10-18] MEDS: traZODone HCl 50 MG TAB PO SCH (21:04)
[2020-10-19] MEDS: Lorazepam 2 MG/ML VIAL SLOW IVP SCH ×6 (00:12→20:49)
[2020-10-19] MEDS: Morphine 4 MG/ML VIAL SLOW IVP PRN ×5 (02:35→18:41)
[2020-10-19] MEDS: Furosemide 80 MG TAB PO SCH ×2 (09:02→15:43)
[2020-10-19] MEDS: Lisinopril 20 MG TAB PO SCH (09:02)
[2020-10-19] MEDS: lamoTRIgine 100 MG TAB PO SCH (20:49)
[2020-10-19] MEDS: Amlodipine 10 MG TAB PO SCH (20:49)
[2020-10-19] MEDS: traZODone HCl 50 MG TAB PO SCH (20:50)
[2020-10-20] MEDS: Lorazepam 2 MG/ML VIAL SLOW IVP SCH ×6 (00:53→20:51)
[2020-10-20] MEDS: Morphine 4 MG/ML VIAL SLOW IVP PRN ×2 (04:12→19:00)
[2020-10-20] MEDS: Lisinopril 20 MG TAB PO SCH (09:09)
[2020-10-20] MEDS: Furosemide 80 MG TAB PO SCH ×2 (09:09→14:13)
[2020-10-20] MEDS: Amlodipine 10 MG TAB PO SCH (20:50)
[2020-10-20] MEDS: lamoTRIgine 100 MG TAB PO SCH (20:50)
[2020-10-20] MEDS: traZODone HCl 50 MG TAB PO SCH (20:51)
[2020-10-21] MEDS: Lorazepam 2 MG/ML VIAL SLOW IVP SCH ×3 (00:35→08:58)
[2020-10-21 08:45] VITALS: BP 130/61; TEMP 100.2
[2020-10-21] MEDS: Lisinopril 20 MG TAB PO SCH (08:47)
[2020-10-21] MEDS: Furosemide 80 MG TAB PO SCH (08:47)
[2020-10-21] MEDS: Morphine 4 MG/ML VIAL SLOW IVP PRN (11:13)
[2020-10-21] MEDS ORDERED: Lorazepam 2 MG/ML VIAL SLOW IVP PRN ×2 (11:22→12:08)
[2020-10-21] MEDS ORDERED: Lorazepam 2 MG/ML VIAL SLOW IVP SCH ×2 (11:30→14:00)
[2020-10-21] MEDS ORDERED: Morphine 4 MG/ML VIAL SLOW IVP PRN ×2 (11:30→12:09)
[2020-10-21] MEDS ORDERED: Morphine 4 MG/ML VIAL SLOW IVP SCH ×2 (11:30→14:00)
== END 2020-10-21 12:08 | disposition expired | DRG 951 ==
LOC: ONC 17:12
PROVIDERS: ADMIT Internal Medicine; ATTEND Internal Medicine
PROC: 5A09557 Assistance with Respiratory Ventilation, Greater than 96 Consecutive Hours, Continuous Positive Airway Pressure (ICD-10-PCS; principal; 2020-10-17)
DX: Z51.5 Encounter for palliative care (principal); I50.33 Acute on chronic diastolic (congestive) heart failure; J96.21 Acute and chronic respiratory failure with hypoxia; J96.22 Acute and chronic respiratory failure with hypercapnia; J44.1 Chronic obstructive pulmonary disease with (acute) exacerbation; L03.115 Cellulitis of right lower limb; E87.1 Hypo-osmolality and hyponatremia; Z66 Do not resuscitate; I25.10 Atherosclerotic heart disease of native coronary artery without angina pectoris; I11.0 Hypertensive heart disease with heart failure; S81.811A Laceration without foreign body, right lower leg, initial encounter; W18.30XA Fall on same level, unspecified, initial encounter; Z99.81 Dependence on supplemental oxygen; Z88.8 Allergy status to other drugs, medicaments and biological substances; Z88.0 Allergy status to penicillin; Z91.041 Radiographic dye allergy status; Z79.899 Other long term (current) drug therapy; Z79.891 Long term (current) use of opiate analgesic; Z79.51 Long term (current) use of inhaled steroids; Z90.710 Acquired absence of both cervix and uterus; Z90.89 Acquired absence of other organs; Z89.512 Acquired absence of left leg below knee; Z82.49 Family history of ischemic heart disease and other diseases of the circulatory system; Z88.6 Allergy status to analgesic agent; Z87.891 Personal history of nicotine dependence
CPT/HCPCS: J2060; J2270; J7620